=== PATIENT | female | born 1955 | race Caucasian/White ===

== ENCOUNTER 2021-07-29 11:02 | Day surgery (SDC) | payer MEDICARE, SELFPAY ==
--- NOTE | 2021-07-29 06:47 | W.ANESPRE ---
General Info Date of Service Date Performed: 07/29/21 Height: 5 ft 5 in Weight: 77 kg Body Mass Index (BMI): 28.2 Surgical Procedure: Operation Date: 07/29/21 12:55 Proposed Procedure Side Surgeon p Cataract Extraction with IOL Implant Left Sandro Segura MD Meds Allergies and Home Medications Allergies Allergy/AdvReac Type Severity Reaction Status Date / Time Penicillins Allergy Unknown As a child Verified 07/29/21 11:25 Home Medication Medication Instructions Recorded loratadine 10 mg capsule 10 mg PO DAILY 07/25/21 losartan 50 mg tablet 50 mg PO HS 07/25/21 lubiprostone 24 mcg capsule 24 mcg PO DAILY 07/25/21 (Amitiza) Current Visit Medications: Current Medications Generic Name Dose Route Start Last Admin Trade Name Freq PRN Reason Stop Dose Admin Acetaminophen 1,000 mg 07/29/21 06:00 Acetaminophen 500 Mg Tab PO Q4H PRN PRN Miscellaneous Medication 0 ml 07/29/21 06:00 Prednisolone 1%, Moxifloxacin 0.5%, Nepafenac 0.1% 5ml Btl OS DIRECTED KAYLIN Miscellaneous Medication 0 ml 07/29/21 06:00 Tropicam./Phenyleph. (1/2.5%) 5 Ml Btl OS DIRECTED KAYLIN Tetracaine HCl 0 ml 07/29/21 06:00 Tetracaine 0.5% 4 Ml Btl OS DIRECTED KAYLIN PFSH Active Problems Active Problems: Problem Status Onset Code Posterior subcapsular age-related cataract of left eye H25.042 Nuclear sclerotic cataract of left eye H25.12 Medical History Medical History (Updated 07/26/21 @ 18:41 by Sandro Segura MD) Allergies Cataract Constipation Heart murmur HTN (hypertension) IBS (irritable bowel syndrome) Surgical History Surgical History (Updated 07/26/21 @ 15:47 by Abbi Jefferson) H/O abdominoplasty H/O adenoidectomy H/O breast augmentation History of bariatric surgery History of colonoscopy History of esophagogastroduodenoscopy (EGD) History of loop electrical excision procedure (LEEP) History of tonsillectomy S/P left knee arthroscopy Tobacco Smoking/Tobacco Use Status: Former Tobacco Use Substance Use Substance use: Never Substance use type: does not use Vital Signs and Lab Results Vital Signs Most Recent Vital Signs in EMR: Temp Pulse Resp BP Pulse Ox 36.5 C 68 16 144/87 H 100 07/29/21 11:27 07/29/21 11:27 07/29/21 11:27 07/29/21 11:27 07/29/21 11:27 Lab Results Blood Type / Crossmatch: No Data to Display Complete Blood Count: No Data to Display Complete Metabolic Panel: No Data to Display Liver Function Panel: No Data to Display Coagulation Panel: No Data to Display Cardiac Panel: No Data to Display Arterial Blood Gas: No Data to Display Venous Blood Gas: No Data to Display Pancreas Panel: No Data to Display Thyroid Panel: No Data to Display Infectious Disease: No Data to Display Blood Cultures: No Data to Display Toxicology Panel: No Data to Display Anesthesia Assessment and Plan Anesthesia History Personal History: No History of Anesthesia Complications Family History: No Family History of Anesthesia Complications Exercise Tolerance Exercise Tolerance: Metabolic Equivalents>4 Cardiac & Pulmonary Exam Cardiac Exam: Normal S1/S2 Heart Sounds Pulmonary Exam: Clear Bilateral Breath Sounds Implantable Cardiac Device Does patient have a Pacemaker or an ICD?: No Airway Exam Known Difficult Airway: No Mallampati Class: 3 Mouth Opening: Narrow (< 3cm) Thyromental Distance: Greater than 3 cm Neck Range of Motion: Full ROM Neck Circumference: Normal Teeth Condition: Normal Dentition ASA Classification ASA Score: ASA 2 Emergency Case?: No NPO Status NPO Status: NPO Clears >2 hours, Solids >8 hours Anesthesia Plan Resuscitation Status: Full Code Anesthesia Technique: MAC Anesthesia Airway Planned: Natural Airway Monitors Used: Standard Monitors Preoperative Comments:: 65 yo female. Sig PMHx; HTN, s/p bariatric surgery, former smoker.
[2021-07-29 11:27] VITALS: BP 144/87; PULSE 68; RESP 16; TEMP 36.5; O2SAT 100
[2021-07-29 11:34] VITALS: BMI 28.2
[2021-07-29] MEDS: Tropicam./Phenyleph. (1/2.5%) 5 ML BTL OS ×3 (11:35→11:47)
[2021-07-29] MEDS: Tetracaine 0.5% 4 ML BTL OS (12:26)
[2021-07-29] MEDS: Balanced Salt Soln.-PLUS 500 ML BAG (12:27)
[2021-07-29] MEDS: Duovisc Viscoelastic System EACH 1 EACH (12:27)
[2021-07-29] MEDS: Lidocaine 2% Jelly 6 ML SYR (12:28)
[2021-07-29] MEDS: Povidone-Iodine Ophth 30 ML BTL (12:29)
[2021-07-29 12:43] VITALS: BP 135/87; PULSE 68; RESP 16; TEMP 36.5; O2SAT 99
--- NOTE | 2021-07-29 12:46 | PDOC.DSDIS_ITS ---
Discharge Plan Disposition Patient Disposition: HOME Condition: Good Discharge Details Attending Provider: Sandro Segura Primary Care Provider: Jacek Hummel [place] Meds and New Rx's Prescriptions: No Action losartan 50 mg Tablet 50 mg PO HS 0RF lubiprostone [Amitiza] 24 mcg Capsule 24 mcg PO DAILY 0RF loratadine 10 mg Capsule 10 mg PO DAILY 0RF Discharge Instructions Stand Alone Forms: Post-op Topical Cataract, Garrison Yepez (DSU) Discharge Orders Discharge Orders: Discharge Order (Routine); Ordered 07/29/21 Ordered By: Sandro Segura DS: Diagnosis Discharge Diagnosis (1) Posterior subcapsular age-related cataract of left eye: Status: Resolved (2) Nuclear sclerotic cataract of left eye: Status: Resolved
--- NOTE | 2021-07-29 12:47 | W.PM.OP ---
Date of service: 07/29/21 Time of Service: 12:47 Operative Note Operative Note DATE OF PROCEDURE: 07/29/21 PRE-OP DIAGNOSIS: Nuclear/posterior subcapsular cataract, left eye POST-OP DIAGNOSIS: same PROCEDURE: Cataract extraction using phacoemulsification with intraocular lens implant, left eye SURGEON: Sandro Segura ANESTHESIA TYPE: Local By Surgeon and MAC Refer to Anesthesia Record PATHOLOGY: none sent COMPLICATIONS: None Patient was transported to: same day Patient's condition: stable Implants: [employer] Tecnis [id number] Indications: Progressive decreased vision due to cataract, left eye Procedure Description: CATARACT SURGERY OPERATIVE REPORT PREOPERATIVE DIAGNOSIS: 1. Nuclear/posterior subcapsular cataract, left eye POSTOPERATIVE DIAGNOSIS: Same OPERATION: 1. Cataract extraction using phacoemulsification with posterior chamber intraocular lens implant, left eye. IOL: IOL Director It/Model: [employer] Dalton / DWIGHT Tecnis [id number] IOL Power: + 20.0 diopters IOL Serial Number: [id number] Optic Diameter: 6.0 mm Haptic/Overall Diameter: 13.0 mm PHACO INFO: [employer] Vision System with OZil and [employer] Cumulative Dispersed Energy (CDE): 8.59 seconds SURGEON: Sandro Segura MD, IVANNA ANESTHESIA: Monitored [facility] (MAC), with local sub-tenon's anesthetic infiltration COMPLICATIONS: None SPECIMENS: None INDICATIONS FOR PROCEDURE: The patient is a 65-year-old lady with history of diminished visual acuity in her left eye secondary to development of nuclear and posterior subcapsular cataract. She has previously undergone cataract surgery in the right eye elsewhere. The option of cataract surgery in her left eye was given to the patient and she wished to proceed. PROCEDURE: The correct surgical eye was identified and marked as the left eye and the pupil was dilated in the preoperative area using mydriatics and cycloplegics. The dilated pupil size was 7.0 mm. Oral sedation was administered in the form of an Imprimis MKO Melt (midazolam 3mg/ketamine 25mg/ondansetron 2mg). The patient was brought to the operating room where cardiopulmonary monitoring was instituted and surgical time-out was performed, confirming the correct operative eye and IOL power. Topical anesthesia was administered and ophthalmic povidone-iodine 5% was instilled into the conjunctival fornices. Lidocaine gel was applied to the cornea and the diane-ocular area was prepped with Betadine 10% solution and draped in the usual sterile fashion for intraocular surgery, including an aperture drape. A Tegaderm transparent film dressing was cut in half and used to cover the lashes and lid margins. Care was taken to sequester the lashes and lid margins under the Tegaderm dressing. A lid speculum was placed between the lids of the operative eye and the Meng Lux[employer] Revalia operating microscope was maneuvered into position. Acrlos scissors were then used to make a conjunctival buttonhole approximately 6mm posterior to the limbus in the inferonasal quadrant. Blunt dissection was carried out to expose bare sclera, and a blunt-tipped sub-tenon?s anesthesia cannula was introduced and passed posteriorly along the globe where non-preserved plain lidocaine was injected into posterior sub-Tenon?s space. A sideport knife was used to make a paracentesis port superiorly/superiortemporally. Intraocular phenylephrine/lidocaine was injected int the anterior chamber.. The anterior chamber was filled with viscoelastic. A 2.4mm keratome knife was used to create a half-thickness groove at the limbus and then to construct a three-plane near-clear corneal tunnel extending 2.0mm into clear cornea at the 3:00 position. A flap was raised on the anterior capsule and capsulorhexis forceps were used to complete a continuous curvilinear capsulorhexis of 5.5 mm. Balanced salt solution was then used to perform cortical cleaving hydrodissection and nuclear hydrodelineation until the lens could be freely rotated within the capsular bag. She was noted to have a fairly dense central posterior subcapsular cataract. The lens nucleus was then disassembled and removed within the capsular bag and iris plane using phacoemulsification. Residual cortical material was removed using the 45-degree angled silicone I/A tip with 0.3mm port. The posterior capsule was carefully polished to remove as much residual lens epithelial cells as safely possible. The capsular bag was then inflated and the anterior chamber deepened with viscoelastic. The lens implant described above was inserted into the capsular bag using the DWIGHT [place] Injector. A Kuglen hook was used to dial the IOL into position. Residual viscoelastic was then removed first from posterior to the IOL, then from the anterior chamber using the I/A handpiece. The lens implant was noted to center nicely within the capsular bag. The incisions were stromally hydrated, and the anterior chamber was reformed using BSS. Then 0.5cc of moxifloxacin 1.0mg/ml were injected into the capsular bag and anterior chamber. The incisions were checked with a Weck spear and found to be secure. Several drops of ophthalmic povidone-iodine 5% were then applied to the eye followed by two drops of Imprimis combination prednisolone/moxifloxacin/nepafenac solution. The drapes were removed and a clear plastic protective eye shield was placed over the eye. The patient was then returned to Same Day Surgery in stable condition.
--- NOTE | 2021-07-29 12:53 | W.ANESPOSTOP ---
Postoperative Evaluation Date, Time and Location Date Performed: 07/29/21 Time Performed: 12:53 Patient Location: Day Surgery Unit Vital Signs Most Recent Imported Vital Signs: Most Recent Vital Signs Temp Pulse Resp BP Pulse Ox 36.5 C 68 16 135/87 99 07/29/21 12:43 07/29/21 12:43 07/29/21 12:43 07/29/21 12:43 07/29/21 12:43 Pain Score Most Recent Pain Score: Most Recent Pain Score Pain Level 0 07/29/21 12:43 Assessment Mental Status: Awake (Alert & Oriented to Patient Baseline) Airway and Respiratory Function: Patent airway with normal (patient baseline) respiratory exam Cardiovascular Function: Hemodynamically Stable Hydration Status: Adequately Hydrated Nausea & Vomiting: No Nausea or Vomiting Pain: Pt. Denies Any Pain Peripheral Nerve Block: Patient did not receive a nerve block
[2021-07-29 13:13] VITALS: BP 132/84; PULSE 67; RESP 16; TEMP 36.5; O2SAT 98
== END 2021-07-29 13:17 | disposition home or self-care (01) ==
PROVIDERS: PCP Neuromusculoskeletal Medicine & OMM; Visit Provider Ophthalmology
PROC: (CPT 66984; principal; 2021-07-29 12:45)
DX: H25.042 Posterior subcapsular polar age-related cataract, left eye (principal); I10 Essential (primary) hypertension; K58.9 Irritable bowel syndrome, unspecified
CPT/HCPCS: 66984; V2632